=== PATIENT | female | born 1970 | race African-American/Black ===

== ENCOUNTER 2019-07-03 18:15 | Emergency (ER) | payer OTHER, SELFPAY ==
[2019-07-03 18:26] VITALS: BP 170/100; PULSE 88; RESP 16; TEMP 36.9; O2SAT 100
--- NOTE | 2019-07-03 18:36 | ED.URI ---
HPI - URI/Sore Throat General Chief Complaint: Upper Respiratory Infection Stated Complaint: cough/congestion/headache/sore throat Time Seen by Provider: 07/03/19 18:32 Source: patient and RN notes reviewed Mode of arrival: ambulatory Limitations: no limitations History of Present Illness HPI Narrative: Patient presents today complaining of 3-day history of nasal congestion, productive cough, body aches, sore throat. Reports headache that began today. Denies shortness of breath or ear pain. No history of asthma or COPD. She has tried DayQuil, NyQuil, and Mucinex with some relief. She did receive a flu vaccine. She is a non-smoker. MD elicited complaint: cough and sore throat Related Data Home Medications Medication Instructions Recorded Confirmed Lacto.acidophilus-Bif.animalis 2 cap PO DAILY 02/14/19 02/14/19 [Daily Probiotic] enalapril-hydrochlorothiazide 1 tablet PO DAILY 02/14/19 02/14/19 [Vaseretic] ferrous sulfate 325 mg PO DAILY 02/14/19 02/14/19 multivit with min-folic acid See Rx Instructions .ROUTE .COMPLEX 02/14/19 02/14/19 [Adult Multivitamin Gummies] omeprazole 20 mg PO DAILY 02/14/19 02/14/19 Allergies Allergy/AdvReac Type Severity Reaction Status Date / Time No Known Allergies Verified 02/20/19 11:19 Review of Systems Review of Systems: Narrative: CONSTITUTIONAL: Denies fever, chills, or sweats.+ Body aches EYES: Denies visual changes, redness, or discharge. ENT: Denies rhinorrhea, otalgia.+ Congestion, sore throat CARDIOVASCULAR: Denies chest pain, palpitations, or edema. RESPIRATORY: Denies dyspnea.+ Cough GASTROINTESTINAL: Denies abdominal pain, nausea, vomiting, or diarrhea. GENITOURINARY: Denies dysuria or hematuria. SKIN: Denies rash, itching, or wounds. MUSCULOSKELETAL: Denies back pain, joint pain, or myalgia. NEUROLOGIC: Denies numbness, tingling, or weakness.+ Headache PSYCH: Denies depression or anxiety. FORMERLY [facility] Past Medical History Medical History (Updated 07/03/19 @ 18:51 by Brittany Rizvi, BOILER TENDER, ) GERD (gastroesophageal reflux disease) HTN (hypertension) (normal spontaneous vaginal delivery) Surgical History Surgical History (Updated 02/20/19 @ 07:38 by Candace Forbes MD) H/O tubal ligation History of x 2 Status post breast reduction Comments At time of signature, I have reviewed and agree with nursing past medical, surgical, social and family history unless otherwise noted. Please see nursing chart for further information. There is no relevant family history pertinent to the presenting complaint Exam Narrative: Exam Narrative: GENERAL: Well-appearing, well-nourished, and in no acute distress. HEAD: Normocephalic, atraumatic. EYES: EOMI. No redness or drainage. Conjunctivae normal. ENT: Mucous membranes pink and moist. Nares clear. No rhinorrhea. TMs normal bilaterally. Throat mildly erythematous without edema or exudate. Uvula midline. NECK: Normal AROM. Supple. No lymphadenopathy. CHEST: No respiratory distress. Clear to auscultation. HEART: Regular rate and rhythm. No murmur appreciated. Normal peripheral pulses. EXTREMITIES: Normal range of motion. No edema. SKIN: Warm, dry, no rash. NEURO: No focal deficits. Alert and oriented x3. Gait steady. PSYCH: Normal affect. No signs of depression or anxiety. Course Vital Signs Vital signs: Vital Signs Temperature 98.4 F 07/03/19 18:26 Pulse Rate 88 07/03/19 18:26 Respiratory Rate 16 07/03/19 18:26 Blood Pressure 170/100 H 07/03/19 18:26 Pulse Oximetry 100 07/03/19 18:26 Temperature 98.4 F 07/03/19 18:26 Pulse Rate 88 07/03/19 18:26 Respiratory Rate 16 07/03/19 18:26 Blood Pressure 170/100 H 07/03/19 18:26 Pulse Oximetry 100 07/03/19 18:26 Reviewed. Pt has been instructed to follow up with her PCP regarding her elevated blood pressure today. MDM - URI/Sore Throat Differential Diagnosis Differential diagnosis: Likely upper resp
[2019-07-03 18:52] VITALS: BP 170/110
== END 2019-07-03 19:02 | disposition home or self-care (01) ==
PROVIDERS: Emergency Provider Nurse Practitioner; PCP Physician Assistant
DX: J06.9 Acute upper respiratory infection, unspecified (principal); K21.9 Gastro-esophageal reflux disease without esophagitis; I10 Essential (primary) hypertension
CPT/HCPCS: 87081; 87880; 99213; G0463

== ENCOUNTER 2023-06-25 16:52 | Emergency (ER) | payer OTHER, SELFPAY ==
--- NOTE | 2023-06-25 16:55 | ED.URI ---
HPI - URI/Sore Throat General Chief Complaint: Upper Respiratory Infection Stated Complaint: cough,chest congestion Time Seen by Provider: 06/25/23 16:55 Source: patient Mode of arrival: ambulatory Limitations: no limitations History of Present Illness HPI Narrative: Amparo is a 52 old female patient presenting to the clinic today with complaints of cough and congestion for the past 3 days. She reports no known fever or chills. Cough is nonproductive. She reports she is having a slight sore throat as well. COVID test at home was negative MD elicited complaint: cough, sore throat and nasal congestion Related Data Home Medications Medication Instructions Recorded Confirmed Lactobacillus 2 cap PO DAILY 02/14/19 06/25/23 acidophilus-Bifidobac.animalis 2.5 billion cell capsule (Daily Probiotic) enalapril 10 1 tablet PO DAILY 02/14/19 06/25/23 mg-hydrochlorothiazide 25 mg tablet (Vaseretic) ferrous sulfate 325 mg (65 mg 325 mg PO DAILY 02/14/19 06/25/23 iron) tablet multivitamin with minerals-folic See Rx Instructions .Route .COMPLEX 02/14/19 06/25/23 acid 200 mcg chewable tablet (Adult Multivitamin Gummies) omeprazole 20 mg capsule,delayed 20 mg PO DAILY 02/14/19 06/25/23 release escitalopram oxalate 10 mg tablet 10 mg PO DAILY 06/25/23 06/25/23 norethindrone 1 mg-ethinyl 1 tablet PO DAILY 06/25/23 06/25/23 estradiol 20 mcg (21)-iron 75 mg (7) tablet (Aurovela Fe 1-20 (28)) Allergies Allergy/AdvReac Type Severity Reaction Status Date / Time No Known Allergies Verified 02/20/19 11:19 Review of Systems Review of Systems: Pertinent positives per HPI. Patient denies any fever, chills, rash, headache, visual changes, dizziness, cough, shortness of breath, chest pain, palpitations, nausea, vomiting, diarrhea, constipation, abdominal pain, or any urinary issues. FORMERLY [facility] Past Medical History Medical History GERD (gastroesophageal reflux disease) HTN (hypertension) (normal spontaneous vaginal delivery) Surgical History Surgical History (Reviewed 06/25/23 @ 17:11 by ANGELINE Gardner H/O tubal ligation History of x 2 Status post breast reduction Comments At the time of my signature, I reviewed and agree with the nursing past medical, surgical, social, and family history. There is no relevant family history pertinent to the patient complaint. Exam Narrative: General: Well-developed, well nourished, in no apparent distress Head: Normocephalic, atraumatic Eyes: Pupils equally round and reactive to light bilaterally, EOM intact, sclera and conjunctive clear, no discharge, lids normal Ears: TMs intact and clear, ear canals clear, no drainage, grossly hearing normal. Nose: Nares patent, clear nasal discharge, no inflammation, no sinus tenderness. Mouth: Oral pharynx without lesions or masses, good dentition, MMM. Neck: Supple, trachea midline, no enlargement of anterior or posterior cervical nodes, no thyroid masses or goiter palpable. Cardio: Regular rate and rhythm, s1 and s2 normal, no murmur appreciated. Resp: Clear to auscultation bilaterally, no rhonchi, rales, wheezing or rubs Course Course Emergency Course: Portions of this record may have been created with voice recognition software. Level of Care: Express Care Visit Vital Signs Vital signs: Vital signs reviewed MDM - URI/Sore Throat MDM Narrative Medical decision making narrative: At the time of visit patient is resting comfortably on the exam table. Patient appears to be nontoxic. Labs: Influenza and strep test was performed and were negative in the clinic today. We will send strep for culture. Plan: I suspect patient has URI/pharyngitis. Supportive measures were discussed with the patient and they voiced understanding discharge instructions and agrees to treatment plan. Return precautions reviewed Differenti
[2023-06-25 17:06] VITALS: BP 182/106; PULSE 91; RESP 16; TEMP 37; O2SAT 99
== END 2023-06-25 17:33 | disposition home or self-care (01) ==
PROVIDERS: Emergency Provider Nurse Practitioner Family; PCP Physician Assistant
DX: J06.9 Acute upper respiratory infection, unspecified (principal); I10 Essential (primary) hypertension; Z79.899 Other long term (current) drug therapy
CPT/HCPCS: 87081; 87804; 87880; 99213; G0463

== ENCOUNTER 2023-10-07 11:44 | Outpatient (CLI) | payer OTHER, SELFPAY ==
[2023-10-07 12:42] LABS: Anion Gap 7 mmol/L (4-12); Blood Urea Nitrogen 13 mg/dL (7-17); Calcium 10.3 mg/dL (8.4-10.2); Carbon Dioxide 26 mmol/L (22-30); Chloride 107 mmol/L (98-107); Estimated Glomerular Filt Rate > 60; Glucose 85 mg/dL (65-110); Sodium 140 mmol/L (137-145)
== END 2023-10-07 11:45 | disposition home or self-care (01) ==
LOC: ANHSURGERY 11:49
PROVIDERS: Anesthesiology; PCP Physician Assistant; Visit Provider Obstetrics & Gynecology Gynecology
DX: Z01.818 Encounter for other preprocedural examination (principal); Z79.899 Other long term (current) drug therapy
CPT/HCPCS: 36415; 80048

== ENCOUNTER 2023-10-11 00:23 | Day surgery (SDC) | payer OTHER, SELFPAY ==
[2023-10-06 10:08] VITALS: BMI 31.3
--- NOTE | 2023-10-06 10:15 | PC.NURSE ---
Report to the Outpatient Waiting Room, entrance under the green pavilion located off [facility], at time _1045_ on date _[id number]_. Planned Procedure Time: _1245_. Time changes happen often and if your time is changed the preop area will call you the afternoon before. - You and your visitor will be asked to self-screen and do not enter if you have any COVID symptoms. - A mask is optional within the hospital at this time. Patients may have clear liquids (water, carbonated beverages, clear teas, apple juice) until 3 hours prior to surgery with a maximum of 20 ounces. - No food from midnight until time of surgery Take the following medications with a SIP of water the morning of surgery: ___Escitalopram DO NOT STOP ANY OF YOUR OTHER PRESCRIPTION MEDICATIONS PRIOR TO SURGERY ?EXCEPT THE FOLLOWING Medications to discontinue per physician None Date to take last dose Please no make-up, nail romanian, hairspray, perfume, deodorant, or body powder the day of surgery. No jewelry (including any body piercings) or valuables the day of surgery, leave them at home. Please take a shower or bath the night before, or the morning of, surgery with an antibacterial soap. Wear comfortable, loose fitting clothing. - Jewelry must be removed prior to entering the operating room. Rings and piercings that are not removed may be cut off. - The hospital will not accept responsibility for valuables. - Please leave all valuables, including medications, at home the day of surgery. If you are going home after surgery, a licensed jinrikisha driver must drive you home. - NO public transportation without another adult if you receive anesthesia. - We recommend that an adult stay with you for 24 hours following discharge. - We also recommend that you do not drive, make important decision, drink alcoholic beverages, or take any drugs that were not prescribed by your health care provider for at least 24 hours after your discharge time. Follow any additional instructions given to you from your surgeon. If you or anyone in your household have experienced Covid symptoms in the past week, please notify your surgeon or the nurse liaison at the phone number below for possible testing. Telephone instructions given to __Zafari__and asked if any additional questions and then verbalized understanding. Patient advised to call surgeon office or pre surgery nurse liaison [phone] if any additional questions.
--- NOTE | 2023-10-11 08:06 | WPDHPUPDATE1 ---
History and Physical Update Update Date/Time: 10/11/23 08:06 History and Physical has been reviewed, including an updated exam of the patient. There are NO changes in the patient's condition. Risks, benefits, and alternatives have been discussed and questions answered. Patient agrees to proceed with procedure.
--- NOTE | 2023-10-11 08:06 | PM.HPGS ---
History of Present Illness History of Present Illness Consent: Risks, benefits, and alternatives have been discussed and questions answered. Patient agrees to proceed with procedure. Chief complaint: Menorrhagia Narrative: Isabela Mcgarry is a 52 year old female with heavy vaginal bleeding since off her control pills. Patient went to the emergency room and was noted to have mild anemia. She discontinued her control pills due to an elevated blood pressure at her primary visit. It was recommended to undergo D&C hysteroscopy for further evaluation. Risks of infection, bleeding, perforation, and possible pathology are discussed. Patient voices understanding and agrees to proceed. Review of Systems Review of Systems: not repeated day of surgery; patient states no changes in status PMFSH Past Medical History Medical History GERD (gastroesophageal reflux disease) HTN (hypertension) (normal spontaneous vaginal delivery) Surgical History Surgical History H/O tubal ligation History of x 2 Status post breast reduction Social History Social History Smoking status: Never smoker Alcohol intake: current Drinks per week: 2 Living arrangements: with family Spiritual care concerns: No Meds Home Medications and Allergies Home Medications Medication Instructions Recorded Confirmed Type enalapril 10 1 tablet PO DAILY 02/14/19 10/06/23 History mg-hydrochlorothiazide 25 mg tablet (Vaseretic) escitalopram oxalate 10 mg tablet 10 mg PO DAILY 06/25/23 10/06/23 History norethindrone 1 mg-ethinyl 1 tablet PO DAILY 06/25/23 10/06/23 History estradiol 20 mcg (21)-iron 75 mg (7) tablet (Aurovela Fe 1-20 (28)) amoxicillin 500 mg capsule 500 mg PO Q12H 10/06/23 10/06/23 History benzonatate 100 mg capsule 100 mg PO TID PRN Cough 10/06/23 10/06/23 History diphenhydramine HCl 25 mg tablet 25 mg PO HS 10/06/23 10/06/23 History (Benadryl Allergy) fexofenadine 60 mg tablet 60 mg PO DAILY 10/06/23 10/06/23 History Allergies Allergy/AdvReac Type Severity Reaction Status Date / Time No Known Allergies Allergy Verified 10/06/23 10:04 Exam Const: General: healthy appearing and alert Orientation/consciousness: patient oriented x3 Resp: Effort & Inspection: normal respiratory effort GI: GI Palp: Yes Soft to palpation, No Tenderness to palpation present (GI) and No Palpable mass present : External Female Exam: normal external appearance Speculum Exam - Vagina: normal appearance of the vagina and normal vaginal discharge Speculum Exam - Cervix: normal appearance of the cervix Bimanual exam- vagina & uterus: uterine size normal and consistency normal Bimanual Exam- Adnexa, other: normal adnexae and No adnexal tenderness Neuro: General: patient oriented x3 Assessment and Plan Assessment and plan (1) Menorrhagia: Code(s): N92.0 - Excessive and frequent menstruation with regular cycle Status: Acute Assessment and Plan: Plan to proceed with D&C hysteroscopy
[2023-10-11 12:10] VITALS: BP 172/97; PULSE 70; RESP 14; TEMP 36.1; O2SAT 100
[2023-10-11] MEDS: LACTATED RINGERS 1,000 ML 30 ML IV CONT (12:10)
[2023-10-11] MEDS: ACETAMINOPHEN 500 MG TABLET 1000 MG PO (12:10)
--- NOTE | 2023-10-11 12:16 | P.PNAN_ITS ---
Anes - Initial Pre Proc Eval Procedure: Operation Date: 10/11/23 12:45 Proposed Procedures p Hysteroscopy Dilation and Curettage - Candace Forbes MD Date/Time: 10/11/23 12:16 Surgeon: Candace Forbes MD Pre Op Diagnosis: Menorrhagia Patient Data Age: 52 Gender: F Height: 1.61 m Weight: 81.4 kg Allergies Allergy/AdvReac Type Severity Reaction Status Date / Time No Known Allergies Allergy Verified 10/06/23 10:04 Home Medications Medication Instructions Recorded Confirmed Type enalapril 10 1 tablet PO DAILY 02/14/19 10/06/23 History mg-hydrochlorothiazide 25 mg tablet (Vaseretic) escitalopram oxalate 10 mg tablet 10 mg PO DAILY 06/25/23 10/06/23 History norethindrone 1 mg-ethinyl 1 tablet PO DAILY 06/25/23 10/06/23 History estradiol 20 mcg (21)-iron 75 mg (7) tablet (Aurovela Fe 1-20 (28)) amoxicillin 500 mg capsule 500 mg PO Q12H 10/06/23 10/06/23 History benzonatate 100 mg capsule 100 mg PO TID PRN Cough 10/06/23 10/06/23 History diphenhydramine HCl 25 mg tablet 25 mg PO HS 10/06/23 10/06/23 History (Benadryl Allergy) fexofenadine 60 mg tablet 60 mg PO DAILY 10/06/23 10/06/23 History Patient hx anesthesia problems: none Family hx anesthesia problems: none Results Review: All pre-operative results and documents have been reviewed as part of the pre- operative evaluation. FORMERLY [facility] Past Medical History Medical History GERD (gastroesophageal reflux disease) HTN (hypertension) (normal spontaneous vaginal delivery) Surgical History Surgical History H/O tubal ligation History of x 2 Status post breast reduction Social History Social History Smoking status: Never smoker Alcohol intake: current Drinks per week: 2 Living arrangements: with family Spiritual care concerns: No Anes - Eval Final PreProcedure Day of Procedure 10/11/23 12:16 Patient weight: obese Heart: regular rate and rhythm Lungs: clear to auscultation Airway: Mallampati scale class II Neurological: alert and oriented Last oral intake: >/= 8 hours ASA classification: II Emergent: no Anesthetic plan: proceed Anesthesia type and monitoring: general GIVS and standard monitoring Results Review: All pre-operative results and documents have been reviewed as part of the pre- operative evaluation. Informed Consent: The patient's anesthetic plan and its attendant risks and benefits were discussed with the patient/family/POA. Questions were solicited and answers provided to the satisfaction of the patient/family/POA.
[2023-10-11] MEDS: KETOROLAC 30 MG/ML VIAL (*BKC) IV PUSH (13:11)
--- NOTE | 2023-10-11 13:14 | P.OP_ITS ---
Procedure Note - Detailed Date of Procedure 10/11/23 Pre-op Diagnosis Menorrhagia Post-op Diagnosis Same Procedure Performed D&C hysteroscopy with partial myomectomy Surgeon Candace Forbes MD Anesthesia MAC Findings uterus is very anteverted; uterus sounds to 9cm; there is a large posterior fibroid filling over half the cavity; the remainder of the endometrium appears grossly normal Description of Procedure The patient is taken to the operating room and placed under anesthesia in the dorsal lithotomy position. She was prepped and draped in the usual sterile fashion. [place] speculum was placed in the vagina and cervix grasped on the anterior lip. The uterus is sounded to 9cm. Uterus is noted to be quite anteverted. The hysteroscope is placed and the above-stated findings were noted. The Flex Aveta resection blade is placed and under direct visualization approximately half the fibroid is removed. As the fibroid was removed it appeared to be having new portions of the fibroid pushing into cavity. Visualization became poor due to bleeding the resection and the procedure was halted. The hysteroscope was removed. The myoma grasper was used X2 and attempted to grasp the jagged edge of the fibroid and this was not successful. The sharp OO curette was used to curette the endometrium until a good uterine cry was noted in all areas. The instruments were then removed. Fluid deficit is 460cc. Sponge, needle, and instrument counts are correct per the OR staff. Patient was awakened from anesthesia and taken to recovery in stable condition. Estimated Blood Loss 100 ( Difficult to evaluate as the discard bag was fairly bloody) Drains No Packing No Pathology Yes ( endometrial shavings and curettings) Complications No immediate complications Condition Stable Disposition PACU
[2023-10-11 13:17] VITALS: BP 175/100; PULSE 72; RESP 16; O2SAT 94
[2023-10-11 13:45] VITALS: BP 175/106; PULSE 58; RESP 14; O2SAT 100
[2023-10-11] MEDS: hydrALAZINE HCL 20 MG/ML VIAL 10 MG IV PUSH (13:50)
[2023-10-11] MEDS: ONDANSETRON INJ 4 MG/2 ML VIAL IV PUSH (14:11)
[2023-10-11 14:15] VITALS: BP 150/86; PULSE 79; RESP 16
[2023-10-11] MEDS: oxyCODONE HCL (*CRX) 5 MG TAB IR PO (14:36)
[2023-10-11 14:45] VITALS: BP 135/81; PULSE 77; RESP 16
[2023-10-11 14:56] VITALS: BP 145/90; PULSE 75; RESP 16
== END 2023-10-11 15:06 | disposition home or self-care (01) ==
PROVIDERS: PCP Physician Assistant; Visit Provider Obstetrics & Gynecology Gynecology
PROC: 0U5B8ZZ Destruction of Endometrium, Via Natural or Artificial Opening Endoscopic (ICD-10-PCS; CPT 58563; principal; 2023-10-11 12:45)
DX: N92.0 Excessive and frequent menstruation with regular cycle (principal); D25.9 Leiomyoma of uterus, unspecified; D64.9 Anemia, unspecified; I10 Essential (primary) hypertension; K21.9 Gastro-esophageal reflux disease without esophagitis; E66.9 Obesity, unspecified; Z68.31 Body mass index [BMI] 31.0-31.9, adult
CPT/HCPCS: 58561; 88305; A9270; J0360; J1885; J2405; J2704; J3010; J7120

== ENCOUNTER 2024-02-10 11:27 | Outpatient (CLI) | payer OTHER, SELFPAY ==
[2024-02-10 12:15] LABS: Hematocrit 39.2 % (37.0-47.0); Hemoglobin 12.4 g/dL (12.0-15.0); Mean Corpuscular HGB Conc 31.6 g/dl (32-36); Mean Corpuscular Hemoglobin 28.7 pg (26-34); Mean Corpuscular Volume 90.7 fl (80-100); Mean Platelet Volume 10.1 fl (7.4-10.4); Platelet Count Result 374 k/mm3 (150-375); Red Blood Count 4.32 M/mm3 (4.2-5.4); Red Cell Distribution Width 13.5 % (11.5-14.5)
== END 2024-02-10 11:28 | disposition home or self-care (01) ==
LOC: ANHLAB 11:28
PROVIDERS: PCP Physician Assistant; Visit Provider Obstetrics & Gynecology
DX: N92.0 Excessive and frequent menstruation with regular cycle (principal)
CPT/HCPCS: 36415; 85027

== ENCOUNTER 2024-05-02 14:16 | Outpatient (CLI) | payer OTHER, SELFPAY ==
[2024-05-02 14:34] LABS: Hematocrit 26.4 % (37.0-47.0); Hemoglobin 7.7 g/dL (12.0-15.0); Mean Corpuscular HGB Conc 29.2 g/dl (32-36); Mean Corpuscular Hemoglobin 24.6 pg (26-34); Mean Corpuscular Volume 84.3 fl (80-100); Mean Platelet Volume 8.8 fl (7.4-10.4); Platelet Count Result 438 k/mm3 (150-375); Red Blood Count 3.13 M/mm3 (4.2-5.4); Red Cell Distribution Width 15.4 % (11.5-14.5); White Blood Count 10.6 K/mm3 (4.5-10.0)
== END 2024-05-02 14:17 | disposition home or self-care (01) ==
PROVIDERS: PCP Physician Assistant; Visit Provider Obstetrics & Gynecology
DX: D64.9 Anemia, unspecified (principal)
CPT/HCPCS: 36415; 85027

== ENCOUNTER 2024-05-08 17:15 | Outpatient (RCR) | payer OTHER, SELFPAY ==
[2024-05-04] VITALS (9 sets, daily range): BP systolic 133–156; BP diastolic 84–95; PULSE 70–90; RESP 14–18; TEMP 36.3–36.7; O2SAT 100
[2024-05-04 08:57] LABS: Hematocrit 23.9 % (37.0-47.0); Mean Corpuscular HGB Conc 29.3 g/dl (32-36); Mean Corpuscular Hemoglobin 25.5 pg (26-34); Mean Corpuscular Volume 86.9 fl (80-100); Mean Platelet Volume 9.8 fl (7.4-10.4); Platelet Count Result 420 k/mm3 (150-375); Red Blood Count 2.75 M/mm3 (4.2-5.4); Red Cell Distribution Width 17.1 % (11.5-14.5); White Blood Count 9.5 K/mm3 (4.5-10.0)
[2024-05-08 17:52] LABS: Hematocrit 34.3 % (37.0-47.0); Hemoglobin 10.4 g/dL (12.0-15.0)
[2024-05-08 17:59] LABS: Anion Gap 10 mmol/L (4-12); Blood Urea Nitrogen 16 mg/dL (7-17); Calcium 9.8 mg/dL (8.4-10.2); Carbon Dioxide 28 mmol/L (22-30); Chloride 101 mmol/L (98-107); Estimated Glomerular Filt Rate > 60; Glucose 91 mg/dL (65-110); Potassium 3.4 mmol/L (3.4-5.0); Sodium 139 mmol/L (137-145)
== END 2024-08-02 23:59 | disposition home or self-care (01) ==
LOC: ANHCPCTRAN 17:15
PROVIDERS: PCP Physician Assistant; Visit Provider Obstetrics & Gynecology
DX: D64.9 Anemia, unspecified (principal)
CPT/HCPCS: 36415; 36430; 80048; 85014; 85018; 85027; 86850; 86900; 86901; 86920; P9016

== ENCOUNTER 2024-05-18 01:08 | Day surgery (SDC) | payer OTHER, SELFPAY ==
--- NOTE | 2024-05-05 15:11 | SUR.PREOP ---
Report to the Outpatient Waiting Room, entrance under the green pavilion located off [facility], at time 0830 on date 05/17/24. Planned Procedure Time: 1030.? Time changes happen often and if your time is changed the preop area will call you the afternoon before. - You and your visitor will be asked to self-screen and do not enter if you have any COVID symptoms. Please call surgeon if you need to reschedule. - A mask is optional within the hospital at this time. Patients may have clear liquids (water, carbonated beverages, clear teas, apple juice) until 3 hours prior to surgery with a maximum of 20 ounces. - NO CLEAR LIQUIDS AFTER 0730 - No food from midnight until time of surgery and no smoking. This includes no chewing gum, candy or mints. - Infants may have breast milk until 4 hours before surgery, formula 6 hours prior to surgery. - Children will be allowed to drink immediately following surgery.? If applicable, please bring a bottle or sippy cup to assist with drinking. Juice, water, soda, and popsicles are readily available.? For infants on formula, please bring formula the day of surgery.? Pacifiers are allowed. Take only the following medications with a SIP of water on the morning of surgery: ESCITALOPRAM & MYFEMBREE DO NOT STOP ANY OF YOUR OTHER PRESCRIPTION MEDICATIONS PRIOR TO SURGERY EXCEPT THE FOLLOWING Medications to discontinue per physician HOLD MULTIVITAMIN BEGINNING 05/14/24 Date to take last dose Please no make-up, nail spanish, hairspray, perfume, deodorant, or body powder the day of surgery.? No jewelry (including any body piercings) or valuables the day of surgery, leave them at home.? Please take a shower or bath the night before, or the morning of, surgery with an antibacterial soap.? Wear comfortable, loose fitting clothing.? Children are encouraged to wear pajamas. - Jewelry must be removed prior to entering the operating room.? Rings and piercings that are not removed may be cut off. - The hospital will not accept responsibility for valuables.? - Please leave all valuables, including medications, at home the day of surgery. If you are going home after surgery, a licensed taxi driver supervisor must drive you home.? - NO public transportation without another adult if you receive anesthesia. - We recommend that an adult stay with you for 24 hours following discharge. - We also recommend that you do not drive, make important decision, drink alcoholic beverages, or take any drugs that were not prescribed by your health care provider for at least 24 hours after your discharge time. For Pediatric surgeries, we recommend two adults accompany the child home. Follow any additional instructions given to you from your surgeon. Telephone instructions given to GENO GOMEZ and asked if any additional questions and then verbalized understanding. Patient advised to call surgeon office or pre surgery nurse liaison [phone] if any additional questions.
[2024-05-05 15:25] VITALS: BMI 31.8
--- NOTE | 2024-05-12 14:32 | PC.NURSE ---
Patient says no changes in health hx since previous interview. Informed patient her surgery would be on May 18, 2024 to arrive at 6am for surgery at 0730. Reviewed rest of instruction given to patient by Constance Cisneros RN.
--- NOTE | 2024-05-17 16:31 | P.HP_ITS ---
H&P: HPI History of Present Illness Date/Time: 05/17/24 16:31 Chief Complaint: Menorrhagia Narrative: Patient with known fibroid uterus with persistent menometorrhagia. She had a D and C and hysteroscopic partial myomectomy. She continued to have intermittently heavy periods since then. Pathology showed benign inactive endometrium and benign fibroid. She wanted a second opinion regarding treatment and I had seen her in January. She was on Slynd then. She did opt for hysterectomy. She was switched to Myfembree. She opted for hysterectomy which was scheduled for May. She did go to ED in [place] for that episode of heavy bleeding. She was subsequently found to have h/h of 11/08 and was given 2units PRBC on May 05. Her surgery date was moved up. Her bleeding has improved and f/u h/h on 05/08 was [id number]. Review of Systems Review of Systems: All systems reviewed & are unremarkable except as noted in HPI and below Cardiovascular: Cardiovascular: Reports no additional cardiovascular complaints, Denies chest pain and Denies dyspnea Respiratory: Respiratory: Reports no additional respiratory complaints and Denies dyspnea Gastrointestinal: Gastrointestinal: Reports abdominal pain, Denies change in bowel habits, Denies diarrhea, Denies nausea and Denies vomiting Genitourinary: Genitourinary: Reports pelvic pain Musculoskeletal: Musculoskeletal: Reports back pain Integumentary/Breasts: Skin/Breast: Reports system reviewed and no additional complaints, except as docu Neurologic: Reports system reviewed and no additional complaints, except as documented PMFSH Past Medical History Medical History Anxiety (normal spontaneous vaginal delivery) GERD (gastroesophageal reflux disease) HTN (hypertension) Surgical History Surgical History Hx of dilation and curettage Status post breast reduction H/O tubal ligation History of x 2 Family History Family History Mother Asthma Diabetes mellitus Hypertension Cerebrovascular accident Father Alcoholism Sibling Malignant neoplasm of prostate Crohn's disease Grandparent Diabetes mellitus Cerebrovascular accident Social History Social History Smoking status: Never smoker Alcohol intake: current Drinks per week: 2 Substance use: never Living arrangements: with family Spiritual care concerns: No Meds Home Medications and Allergies Home Medications ?Medication ?Instructions ?Recorded ?Confirmed ?Type enalapril 10 1 tablet PO DAILY 02/14/19 05/05/24 History mg-hydrochlorothiazide 25 mg tablet (Vaseretic) escitalopram oxalate 10 mg tablet 10 mg PO DAILY 06/25/23 05/05/24 History multivitamin (Daily Multi-Vitamin 1 tablet PO DAILY 04/06/24 05/05/24 History tablet) relugolix 40 mg-estradiol 1 1 tablet PO DAILY #90 tabs 04/06/24 05/05/24 Rx mg-norethindrone acetate 0.5 mg tablet (Myfembree) ferrous sulfate 325 mg (65 mg 325 mg PO DAILY 05/02/24 05/05/24 History iron) tablet,delayed release mecobalamin (vitamin B12) 1,000 1,000 mcg PO DAILY 05/02/24 05/05/24 History mcg chewable tablet (B12 Active) Allergies Allergy/AdvReac Type Severity Reaction Status Date / Time No Known Allergies Allergy Verified 05/12/24 14:29 Exam Const: Orientation/consciousness: oriented to person and oriented to place HENMT: Head: normal to inspection Eyes: General: appearance normal, both eyes and all related structures Resp: Effort & Inspection: normal respiratory effort Auscultation: clear to auscultation bilaterally Cardio: Rate: regular rate Rhythm: regular rhythm GI: Inspection: normal to inspection GI Palp: No Rebound tenderness present Neuro: General: oriented to person and oriented to place Cognition (Neuro): normal cognition Extrem: General: normal to inspection Psych: Appearance: grossly normal and well kempt Assessment and Plan Assessment and plan (1) Menorrhagia: Code(s): N92.0 - Excessive and frequent menstruation with regular cycle Status: Acute Assessment and Plan: Will proceed with robotic assisted laparoscopic total vaginal hysterectomy and bilateral salpingo-oophorectomy. (2) Fibroid uterus: Code(s): D25.9 - Leiomyoma of uterus, unspecified Status: Acute
[2024-05-18] VITALS (11 sets, daily range): BP systolic 114–166; BP diastolic 80–101; PULSE 58–96; RESP 9–18; TEMP 36.1–36.8; O2SAT 92–100
--- OUTSIDE RECORDS SUMMARY | 2024-05-18 01:11 | XMS_ITS | Clinical Summary ---
Author Organization [facility] Address [address] [place] [address]. [place] [address] [place] [address] Care Team Providers Care Network Developer Name Role Phone Travis Allen Primary Care Provider [phone] Allergies No known active allergies Medications omeprazole 20 MG capsule Take 20 mg by mouth daily. Active enalapril-hydro CHLOROthiazide 10-25 MG tablet 12/05/2012 Act nimesh Multiple Vitamins-Minera ls (MULTIVITAMIN ADULTS OR) Take by mouth daily. Active NON FORMULARY control Active BLISOVI 24 FE 1-20 MG-MCG(24) tablet 06/24/2021 Active ferrous sulfate, 65 mg elemental, 325 (65 FE) MG tablet Take 1 tablet (325 mg total) by mouth daily with breakfast. 30 tablet 08/23/2023 Active potassium chloride CR (K-TAB) 20 MEQ tablet Take 1 tablet (20 mEq total) by mouth daily for 3 days. 3 tablet 04/27/2024 04/30/19 25 Encounters Date Type Department Care Team Description 04/26/2024 7:32 PM DENTAL FLOSS PACKER - 04/27/2024 2:04 AM [facility] Emergency [facility] [place] [address] Krysten Fowler PA Vaginal Bleeding Discharge Disposition: Home or Self Care (Routine Discharge) 04/26/2024 Travel 03/02/2024 2:20 PM DENTAL FLOSS PACKER - 03/02/2024 11:59 PM DENTAL FLOSS PACKER Hospital Encounter [facility] [place] [address] [address] Jose R Teresa MD Discharge Disposition: Home or Self Care (Routine Discharge) 03/02/2024 Travel from Last 3 Months Family History Medical History Relation Comments No Known Problems Father Diabetes Mother Hypertension Mother Stroke Mother Relation Status Comments Father Mother Alive Social History Tobacco Use Types Packs/Day Years Used Date Smoking Tobacco: Never Smokeless Tobacco: Never Alcohol Use Standard Drinks/Week Comments Yes 0 (1 standard drink = 0.6 oz pur e alcohol) social Comments No Sex and Gender Information Value Date Recorded Sex Assigned at Not on file Legal Sex Female 5:01 PM CDT Gender Identity Not on file Sexual Orientation Not on file Last Filed Vital Signs Vital Sign Reading Time Taken Comments Blood Pressure 115/88 04/27/2024 12:58 AM DENTAL FLOSS PACKER Pulse 103 04/27/2024 12:58 AM DENTAL FLOSS PACKER Temperature 36.2 ??C (97.2 ??F) 04/27/2024 12:[address] Respiratory Rate 20 04/27/2024 12:58 AM DENTAL FLOSS PACKER Oxygen Saturation 100% 04/27/2024 12:58 AM DENTAL FLOSS PACKER Inhaled Oxygen Concentration - - Weight 81.6 kg (180 lb) 04/26/2024 7:14 PM DENTAL FLOSS PACKER Height 160 cm (5' 3 ) 04/26/2024 7:14 PM DENTAL FLOSS PACKER Body Mass Index 31.89 04/26/2024 7:14 PM DENTAL FLOSS PACKER Plan of Treatment Health Maintenance Due Date Last Done Comments Cervical Cancer Screening Pa p Smear (Age 30 to 64) Every 3 Years 1971 Annual Physical 12/10/1974 Hepatitis C 12/10/1989 DTaP, Tdap and Td Vaccines ( 1 - Tdap) 12/10/1990 Hepatitis B Vaccines (1 of 3 - 19+ 3-dose series) 12/10/1990 Cervical Cancer Screening Pa p with HPV Testing (Age 30 to 64) Every 5 Years 12/10/2001 Cervical Cancer Screening wi th HPV 12/10/2001 Zoster Vaccines (1 of 2) 12/10/2021 Mammogram Screening 05/29/2022 05/29/2020, 05/10/2018, 04/06/2017 COVID-19 Vaccine (3 - 2023-2 5 season) 2023 07/07/2020, 06/15/2020 Influenza Adult (#1) 2024 Colorectal Cancer Screening Colonoscopy (10 Years) 11/25/2030 11/25/2020, 11/25/2020 Meningococcal B Vaccine Aged Out No l onger eligible based on patient's age to complete this topic Meningococcal Vaccine Aged Out No sarina michelle eligible based on patient's age to complete this topic Pneumococcal Vaccine: Pediatrics (0 to 5 Years) and At-Risk Patients (6 to 64 Years) Aged Out No longer eligible b ased on patient's age to complete this topic RSV Immunizations Under 20 Months Aged Out No longer eligible b ased on patient's age to complete this topic Procedures Procedure Name Priority Date/Time Associated Diagnosis Comments HEMOGLOBIN AND HEMATOCRIT STAT 04/26/2024 10:53 PM DENTAL FLOSS PACKER ECG 12-LEAD STAT 04/26/2024 10:18 PM DENTAL FLOSS PACKER TYPE & SCREEN STAT 04/26/2024 7:41 PM DENTAL FLOSS PACKER CHORIONIC GONADOTROPIN HCG QL STAT 04/26/2024 7:41 PM DENTAL FLOSS PACKER COMPREHENSIVE METABOLIC PANEL STAT 04/26/2024 7:41 PM DENTAL FLOSS PACKER CBC W/DIFF AUTOMATED STAT 04/26/2024 7:41 PM DENTAL FLOSS PACKER MAGNESIUM Routine 04/26/2024 7:35 PM DENTAL FLOSS PACKER US PELVIC NON OB COMP TA+TV Routine 03/02/2024 3:13 PM DENTAL FLOSS PACKER Benign neoplasm of connective and other soft tissue, unspecified COLONOSCOPY Routine 11/25/2020 11:11 AM CDT MG SCREENING W WIN ROCHELLE DIGI Routine 05/29/2020 8:00 AM DENTAL FLOSS PACKER Encounter for screening mammogram for malignant neoplasm of breast from Last 3 Months or Most Recently Relevant to Health Maintenance Results * (ABNORMAL) HEMOGLOBIN AND HEMATOCRIT (04/26/2024 10:53 PM DENTAL FLOSS PACKER) HGB 8.0(L) 12.0 - 16.0 G/DL 04/26/2024 11:21 PM DENTAL FLOSS PACKER [facility] HCT 25.3(L) 38.0 - 48.0 % 04/26/2024 11:21 PM DENTAL FLOSS PACKER [facility] 04/26/2024 10:5 3 PM DENTAL FLOSS PACKER us Krysten [facility]ORAT[facility] Final Resu lt [facility] [address] [place] [address], * ECG 12 lead (04/26/2024 10:18 PM DENTAL FLOSS PACKER) 04/26/2024 10:1 8 PM DENTAL FLOSS PACKER Narrative [facility] ([facility]) RAD - 04/27/2024 3:41 PM DENTAL FLOSS PACKER ?Paloma`delisa Martin ? [address] [facility] ? Test Date: ?2024-04-26 Pat Name: ? ISABELA MCGARRY ?Department: ?? 41 ? Room: ? EXAM10 Gender: ? Female ? Installation And Repair Technician: ?? CB : ?1970 ? Requested By: KRYSTEN FOWLER Order Number: [id number] ? Reading MD: ?? Leonard Marshall ? Measurements Intervals ?[place] ? Rate: ? 79 ? P: ?24 NE: ? 164 ?QRS: ?20 QRSD: ? 98 ? T: ?53 QT: ? 388 ? QTc: ?447 ? Interpretive Statements SINUS RHYTHM NONSPECIFIC T-WAVE ABNORMALITY Compared to ECG 07/03/2019 23:43:54 T-wave abnormality now present Sinus arrhythmia no longer present First degree AV block no longer present No ischemic changes Preliminary EKG Interpretation by Otis Sarmiento DO AL FLOSS PACKER Procedure Note Leonard Marshall MD - 04/27/[address] Test Date: 2024-04-26 Pat Name: ISABELA MCGARRY Department: 41 Room: [facility] Gender: Female Installation And Repair Technician: DAMON : 1970 Requested By: KRYSTEN FOWLER Order Number: [id number] Reading MD: Leonard Marshall Measurements Intervals [place] Rate: 79 P: 24 NE: 164 QRS: 20 QRSD: 98 T: 53 QT: 388 QTc: 447 Interpretive Statements SINUS RHYTHM NONSPECIFIC T-WAVE ABNORMALITY Compared to ECG 07/03/2019 23:43:54 T-wave abnormality now present Sinus arrhythmia no longer present First degree AV block no longer present No ischemic changes Preliminary EKG Interpretation by Otis Sarmiento DO AL FLOSS PACKER us Krysten MACIAS ECG ORDERABLES Final Resu lt Performing Organization Address City/[facility]/ZIP Co de Phone Number [facility] ([facility]) RAD * TYPE & SCREEN (04/26/2024 7:41 PM DENTAL FLOSS PACKER) ABO/RH O POSITIVE 04/26/2024 9:15 PM DENTAL FLOSS PACKER [facility] ANTIBODY SCREEN NEGATIVE 04/26/2024 9:15 PM DENTAL FLOSS PACKER [facility] SAMPLE EXPIRATION 04/29/2024,2 359 04/26/2024 9:15 PM DENTAL FLOSS PACKER [facility] 04/26/2024 7:41 PM DENTAL FLOSS PACKER us Apryl MACIAS BLOOD BANK TEST ORDERABLES Fin al Result [facility] [address] [place] [address], [place] [phone] * (ABNORMAL) COMPREHENSIVE METABOLIC PANEL (04/26/2024 7:41 PM DENTAL FLOSS PACKER) GLUCOSE 138(H) 70 - 99 MG/DL 04/26/2024 8:50 PM [facility] BUN 13 7 - 18 MG/DL 04/26/2024 8:50 PM [facility] CREATININE S/P/B 0.93 0.55 - 1.02 MG/DL 04/26/2024 8:50 PM [facility] SODIUM S/P/B 136 136 - 145 MMOL/L 04/26/2024 8:50 PM [facility] POTASSIUM S/P/B 2.9(LL) 3.5 - 5.1 MMOL/L 04/26/2024 8:50 PM [facility] Comment: Critical Result(s) Called at: 20:49:31 on 04/26/2024 by: Magda Marion to and read back by:JORDEN DE LA TORRE CHLORIDE S/P/B 103 97 - 115 MMOL/L 04/26/2024 8:50 PM [facility] CO2 28.9 21 - 32 MMOL/L 04/26/2024 8:50 PM [facility] CALCIUM S/P/B 10.0 8.5 - 10.1 MG/DL 04/26/2024 8:50 PM [facility] BILIRUBIN TOTAL S/P/B 0.3 0.2 - 1.2 MG/DL 04/26/2024 8:50 PM [facility] Comment: THIS ASSAY IS NOT RECOMMENDED FOR PATIENTS UNDERGOING TREATMENT WITH ELTROMBOPAG DUE TO THE POTENTIAL FOR FALSELY ELEVATED RESULTS. TOTAL PROTEIN S/P/B 7.7 6.4 - 8.2 G/DL 04/26/2024 8:50 PM [facility] ALBUMIN S/P/B 3.6 3.4 - 5.0 G/DL 04/26/2024 8:50 PM DENTAL FLOSS PACKER [facility] AST 14(L) 15 - 37 U/L 04/26/2024 8:50 PM DENTAL FLOSS PACKER [facility] ALT 19 14 - 55 U/L 04/26/2024 8:50 PM DENTAL FLOSS PACKER [facility] ALKALINE PHOSPHATASE S/P/B 79 50 - 136 U/L 04/26/2024 8:50 PM DENTAL FLOSS PACKER [facility] ANION GAP 4.1 2 - 10 MMOL/L 04/26/2024 8:50 PM DENTAL FLOSS PACKER [facility] BUN CREATININE RATIO 13.9 6 - 26 04/26/2024 8:50 PM [facility] A/G RATIO 0.9(L) 1.0 - 2.0 RATIO 04/26/2024 8:50 PM [facility] GFR ESTIMATE 74(L) >90 ML/MIN/1.7 3 M2 04/26/2024 8:50 PM [facility] Comment: NOTE: eGFR is not calculated for patients <18 years of age or gender unknown. This is an estimated GFR calculation using the new CKD EPI creatinine equation without race and so does not require a correction factor for race. This estimated GFR should not be used for calculating drug doses. 04/26/2024 7:41 PM DENTAL FLOSS PACKER us Apryl [facility]ORAT[facility] Final Result [facility] [address] [place] [address], [place] [phone] * Qualitative HCG (04/26/2024 7:41 PM DENTAL FLOSS PACKER) PREG SCREEN-SERUM NEGATIVE 04/26/2024 8:09 PM DENTAL FLOSS PACKER [facility] 04/26/2024 7:41 PM DENTAL FLOSS PACKER us Apryl MACIAS LABORAT[facility] Final Result [facility] [address] [place] [address], * (ABNORMAL) CBC W/DIFF AUTOMATED (04/26/2024 7:41 PM DENTAL FLOSS PACKER) [facility] WBC 9.67 4.5 - 11.0 x10'3/uL 04/26/2024 7:54 PM DENTAL FLOSS PACKER [facility] RBC 3.53(L) 4.20 - 5.40 x10'6/uL 04/26/2024 7:54 PM DENTAL FLOSS PACKER [facility] HGB 8.9(L) 12.0 - 16.0 G/DL 04/26/2024 7:54 PM [facility] HCT 28.8(L) 38.0 - 48.0 % 04/26/2024 7:54 PM DENTAL FLOSS PACKER [facility] MCV 81.6 81.0 - 99.0 FL 04/26/2024 7:54 PM [facility] MCH 25.2(L) 27.0 - 31.0 PG 04/26/2024 7:54 PM [facility] MCHC 30.9(L) 32.0 - 36.0 G/DL 04/26/2024 7:54 PM [facility] RDW 14.6(H) 11.5 - 14.5 % 04/26/2024 7:54 PM [facility] PLT 399 130 - 400 x10'3/uL 04/26/2024 7:54 PM [facility] MPV 9.2(L) 9.3 - 12.2 FL 04/26/2024 7:54 PM [facility] DIFFERENTIAL TYPE AUTOMATED DIFFERENTIAL 04/26/2024 7:54 PM DENTAL FLOSS PACKER [facility] NEUTROPHILS % 64.2 % 04/26/2024 7:54 PM DENTAL FLOSS PACKER [facility] LYMPHOCYTES % 25.3 % 04/26/2024 7:54 PM DENTAL FLOSS PACKER [facility] MONOCYTES % 8.8 % 04/26/2024 7:54 PM DENTAL FLOSS PACKER [facility] EOSINOPHILS 0.7 % 04/26/2024 7:54 PM DENTAL FLOSS PACKER [facility] BASOPHILS 0.6 % 04/26/2024 7:54 PM DENTAL FLOSS PACKER [facility] IMMATURE GRANS % 0.4 % 04/26/19 7:54 PM DENTAL FLOSS PACKER [facility] ABS. NEUTROPHILS 6.20 1.80 - 7.70 x10'3/uL 04/26/2024 7:54 PM DENTAL FLOSS PACKER [facility] ABS. LYMPHOCYTES 2.45 1.00 - 4.80 x10'3/uL 04/26/2024 7:54 PM DENTAL FLOSS PACKER [facility] ABS. MONOCYTES 0.85 0.24 - 0.86 x10'3/uL 04/26/2024 7:54 PM DENTAL FLOSS PACKER [facility] ABS. EOSINOPHILS 0.07 0.04 - 0.36 x10'3/uL 04/26/2024 7:54 PM DENTAL FLOSS PACKER [facility] ABS. BASOPHILS 0.06 0.01 - 0.08 x10'3/uL 04/26/2024 7:54 PM DENTAL FLOSS PACKER [facility] ABS. IMMATURE GRANULOCYTES 0.04 0.00 - 0.49 x10'3/uL 04/26/2024 7:54 PM DENTAL FLOSS PACKER [facility] 04/26/2024 7:41 PM DENTAL FLOSS PACKER us Apryl [facility]IAS [facility]ORAT[facility] Final Result [facility] [address] [place] [address], [place] [phone] * MAGNESIUM (04/26/2024 7:35 PM DENTAL FLOSS PACKER) MAGNESIUM 2.0 1.8 - 2.4 MG/DL 04/26/2024 10:05 PM DENTAL FLOSS PACKER [facility] 04/26/2024 7:35 PM DENTAL FLOSS PACKER us Krysten MACIAS [facility]OR[facility] Final Resu lt [facility] [address] [place] [address], [place] [phone] * US PELVIC NON OB COMP TA+TV (03/02/2024 3:13 PM DENTAL FLOSS PACKER) Anatomical Region Laterality Modality Pelvis Ultrasound 03/02/2024 4:17 PM DENTAL FLOSS PACKER Impressions 03/02/2024 4:39 PM DENTAL FLOSS PACKER IMPRESSION: 1. Mildly enlarged heterogeneous uterus. In the central uterus is a heterogeneous hyperechoic 3 cm mass which may be a submucosal leiomyoma although endometrial mass is not excluded. Additional 3.2 cm and 1.6 cm hypoechoic lesions suggesting leiomyomas. Uterine lesions could be further evaluated and characterized on MRI pelvis without and with contrast. 2. No acute ovarian or adnexal abnormality. 3. Minimal fluid in the posterior cul-de-sac is likely physiologic. Ordered By: JOSE R TERESA Interpreted By: Ayo Adrian, 03/02/2024 4:17 PM Narrative 03/02/2024 4:39 PM DENTAL FLOSS PACKER [facility] [address] [place], [place] [address] IMAGING STUDIES: ??US PELVIC NON OB COMP TA+TV ? DATE: ??03/02/2024 2:21 PM HISTORY: ??BENIGN NEOPLASM OF CONNECTIVE AND OTHER SOFT TISSUE UNSPECIFIED ?? . 53-year-old female. Prolonged menstrual periods with heavy bleeding and passing clots. She reports that she has had menstrual bleeding for approximately one month (starting 02/01/2024) and has not completely stopped with current spotting. History of uterine leiomyomas. Patient is reportedly scheduled for a hysterectomy in May. Prior surgical history of 2 C-sections and tubal ligation. COMPARISON: ??Ultrasound pelvis 02/06/2019. DISCUSSION: Transabdominal pelvic ultrasound: Anteverted uterus is ??9.6 x 6.1 x 6.4 cm. Endometrium is not adequately visualized on transabdominal imaging. Heterogeneous uterine echotexture. Approximately 4.6 x 4 x 4 cm mildly hyperechoic heterogeneous region of the uterus. Right ovary 2.6 x 1.2 x 2 cm. Right ovarian follicles of up to 8 mm. Normal color Doppler imaging of the right ovary. Left ovary is not visualized on transabdominal imaging. Endovaginal pelvic ultrasound: Anteverted uterus is ??10.2 x 5.9 x 6.1 cm. Endometrium 7.4 mm thickness. Multiple cervical nabothian cysts of up to 5 mm (nabothian cysts of up to 11 mm on 2019 ultrasound). Heterogeneous uterine echotexture. In the posterior uterus is a 2.8 x 2.3 x 3.2 cm hypoechoic partially exophytic mass most suggestive of leiomyoma. Toward the central uterus is a heterogeneous mildly hyperechoic mass of 2.8 x 3 x 2.7 cm which may be a submucosal leiomyoma although mass originating from the endometrium is not excluded. In the right uterus is a hypoechoic 1.6 x 1.3 x 1.3 cm structure most suggestive of submucosal leiomyoma. On 2019 ultrasound, posterior uterine 1.6 cm hypoechoic lesion suggesting leiomyoma. Right ovary 2.7 x 1.7 x 2.5 cm. 7 mm right ovarian follicle. Left ovary 2.3 x 1.6 x 2.3 cm. Color Doppler and pulse Doppler imaging of the ovaries and adnexa are within normal limits. Minimal fluid in the posterior cul-de-sac (approximately 1.9 x 0.7 cm) is likely physiologic. Procedure Note Ayo Adrian MD - 03/02/2024 [facility] [address] [place], [place] [address] IMAGING STUDIES: US PELVIC NON OB COMP TA+TVDATE: 03/02/2024 2:21PM HISTORY: BENIGN NEOPLASM OF CONNECTIVE AND OTHER SOFT TISSUE UNSPECIFIED. 53-year-old female. Prolonged menstrual periods with heavybleeding and passing clots. She reports that she has had menstrualbleeding for approximately one month (starting 02/01/2024) and has notcompletely stopped with current spotting. History of uterine leiomyomas.Patient is reportedly scheduled for a hysterectomy in May. Priorsurgical history of 2 C-sections and tubal ligation. COMPARISON: Ultrasound pelvis 02/06/2019. DISCUSSION: Transabdominal pelvic ultrasound: Anteverted uterus is 9.6 x 6.1 x 6.4 cm. Endometrium is not adequatelyvisualized on transabdominal imaging. Heterogeneous uterine echotexture.Approximately 4.6 x 4 x 4 cm mildly hyperechoic heterogeneous region ofthe uterus. Right ovary 2.6 x 1.2 x 2 cm. Right ovarian follicles of up to 8 mm.Normal color Doppler imaging of the right ovary. Left ovary is not visualized on transabdominal imaging. Endovaginal pelvic ultrasound: Anteverted uterus is 10.2 x 5.9 x 6.1 cm. Endometrium 7.4 mm thickness.Multiple cervical nabothian cysts of up to 5 mm (nabothian cysts of up to11 mm on 2019 ultrasound). Heterogeneous uterine echotexture. In theposterior uterus is a 2.8 x 2.3 x 3.2 cm hypoechoic partially exophyticmass most suggestive of leiomyoma. Toward the central uterus is aheterogeneous mildly hyperechoic mass of 2.8 x 3 x 2.7 cm which may be asubmucosal leiomyoma although mass originating from the endometrium is notexcluded. In the right uterus is a hypoechoic 1.6 x 1.3 x 1.3 cm structuremost suggestive of submucosal leiomyoma. On 2019 ultrasound, posterior uterine 1.6 cm hypoechoic lesion suggestingleiomyoma. Right ovary 2.7 x 1.7 x 2.5 cm. 7 mm right ovarian follicle. Left ovary 2.3 x 1.6 x 2.3 cm. Color Doppler and pulse Doppler imaging of the ovaries and adnexa arewithin normal limits. Minimal fluid in the posterior cul-de-sac (approximately 1.9 x 0.7 cm) islikely physiologic. IMPRESSION: 1. Mildly enlarged heterogeneous uterus. In the central uterus is aheterogeneous hyperechoic 3 cm mass which may be a submucosal leiomyomaalthough endometrial mass is not excluded. Additional 3.2 cm and 1.6 cmhypoechoic lesions suggesting leiomyomas. Uterine lesions could be furtherevaluated and characterized on MRI pelvis without and with contrast. 2. No acute ovarian or adnexal abnormality. 3. Minimal fluid in the posterior cul-de-sac is likely physiologic. Ordered By: JOSE R TERESA Interpreted By: Ayo Adrian, 03/02/2024 4:17 PM us Jose R Teresa MD ULTRASOUND Final Result * MG SCREENING W WIN ROCHELLE DIGI (05/29/2020 8:00 AM DENTAL FLOSS PACKER) Anatomical Region Laterality Modality Breast Bilateral Mammography 05/29/2020 8:28 AM DENTAL FLOSS PACKER Impressions 05/29/2020 8:29 AM DENTAL FLOSS PACKER =====IMPRESSION:===== No mammographic findings suggestive of malignancy. ASSESSMENT: ACR BI-RADS CATEGORY 2 - BENIGN FINDING(S) RECOMMENDATION: 1: Routine screening mammogram ??bilateral ??in 1 year COMMENTS: ? Narrative 05/29/2020 8:29 AM DENTAL FLOSS PACKER EXAMINATION: Digital bilateral screening mammogram with 3-D tomosynthesis EXAM DATE/TIME: 05/29/2020 7:41 AM REASON FOR EXAM: ??SCREENING ? COMPARISON: 2018, 2016, 2015 TECHNIQUE: Digital screening mammography of both breasts was performed in addition to 3-D Tomosynthesis technique. This study was read with the assistance of a computer-aided detection system. TISSUE DENSITY: The breast tissue is heterogeneously dense. FINDINGS: No suspicious masses, malignant appearing calcifications, skin thickening or other abnormalities are present. ??No significant change from the prior exam. us Candace Forbes MD MAMMO Final Res ult from Last 3 Months or Most Recently Relevant to Health Maintenance Insurance [employer] OPEN ACCESS [facility] Care Teams Network Developer Relationship Specialty Start Date End Date Travis Allen PA [address] [place] [address] [id number] PCP - General 08/10/16
--- OUTSIDE RECORDS SUMMARY | 2024-05-18 01:11 | XMS_ITS | Clinical Summary ---
Author Organization [facility] Address [address] [facility] Attn: Epic Prelude ADT STEFANIA OQUENDO MORIS [id number] Care Team Providers Care Truck Spotter Name Role Phone Unavailable Primary Care Provider Unavailabl e Social History Tobacco Use Types Packs/Day Years Used Date Smoking Tobacco: Never Assessed Comments Unknown Sex and Gender Information Value Date Recorded Sex Assigned at Not on file Legal Sex Female 4:53 AM HAND PLATE STACKER Gender Identity Not on file Sexual Orientation Not on file Plan of Treatment Health Maintenance Due Date Last Done Comments DTAP/TDAP/TD VACCINES (1 - Tdap) 12/10/1990 HEPATITIS B VACCINES (1 of 3 - 19+ 3-dose series) 12/10/1990 CERVICAL CANCER SCREENING 12/10/2001 BREAST CANCER SCREENING 2011 COLORECTAL SCREENING 12/10/2016 Colorectal Cancer Screening 12/10/2016 FIT-DNA Q 3 years 12/10/2016 FIT/FOBT Q 1 year 12/10/2016 Flex Sig/CT Colonography Q 5 years 12/10/2016 ZOSTER VACCINE (1 of 2) 12/10/2021 INFLUENZA VACCINE (#1) 2023 PNEUMOCOCCAL VACCINE 0-64 YEARS Aged Out No longer eligible based on patient's age to complete this topic
--- OUTSIDE RECORDS SUMMARY | 2024-05-18 01:11 | XMS_ITS | Encounter Summary ---
Author Organization [facility] Address [address] [place] [address]. [place] [address] [place] [address] Care Team Providers Care Supervisor Engine Assembly Name Role Phone Travis Allen Primary Care Provider [phone] Encounter Details Date Type Department Care Team (Late st Contact Info) Description 11/13/2020 Prep for Procedure [facility] [place] [address] Veronica Guzman MD [address] [facility] [address] [place] [address] Social History Tobacco Use Types Packs/Day Years Used Date Smoking Tobacco: Never Smokeless Tobacco: Never Alcohol Use Standard Drinks/Week Comments Yes 0 (1 standard drink = 0.6 oz pur e alcohol) social Comments Unknown Sex and Gender Information Value Date Recorded Sex Assigned at Not on file Legal Sex Female 5:01 PM CDT Gender Identity Not on file Sexual Orientation Not on file documented as of this encounter Plan of Treatment Not on file documented as of this encounter Visit Diagnoses Diagnosis Encounter for screening colonoscopy- Primary Special screening for malignant neoplasms, colon documented in this encounter Care Teams Supervisor Engine Assembly Relationship Specialty Start Date End Date Travis Allen PA [address] [facility] [address] [place] [address] PCP - General 08/10/16 documented as of this encounter
--- NOTE | 2024-05-18 05:58 | ECG_ITS ---
Test Date: 2024-05-18 06:40:19 Measurements Intervals [place] Rate: 67 P: 35 NV: 204 QRS: 18 QRSD: 98 T: 29 QT: 400 QTc: 423 Interpretive Statements SINUS RHYTHM No previous ECG available for comparison Electronically Signed On 05-18-2024 11:41:09 POLE SETTER by Mak Barraza M.D.
--- NOTE | 2024-05-18 07:11 | WPDANESEPPF ---
Anes - Initial Pre Proc Eval Procedure: Operation Date: 05/18/24 07:30 Proposed Procedures p Robotic Laparoscopic Assisted Total Vaginal Hysterectomy, Bilateral Salpingo Oophorectomy, Possible Total Abdominal Hysterectomy - Jose R Murdock MD Date/Time: 05/18/24 07:11 Surgeon: Jose R Murdock MD Pre Op Diagnosis: Sym Fibroid Uterus Patient Data Age: 53 Gender: F Height: 1.63 m Weight: 84 kg Allergies Allergy/AdvReac Type Severity Reaction Status Date / Time No Known Allergies Allergy Verified 05/12/24 14:29 Home Medications ?Medication ?Instructions ?Recorded ?Confirmed ?Type enalapril 10 1 tablet PO DAILY 02/14/19 05/05/24 History mg-hydrochlorothiazide 25 mg tablet (Vaseretic) escitalopram oxalate 10 mg tablet 10 mg PO DAILY 06/25/23 05/05/24 History multivitamin (Daily Multi-Vitamin 1 tablet PO DAILY 04/06/24 05/05/24 History tablet) relugolix 40 mg-estradiol 1 1 tablet PO DAILY #90 tabs 04/06/24 05/05/24 Rx mg-norethindrone acetate 0.5 mg tablet (Myfembree) ferrous sulfate 325 mg (65 mg 325 mg PO DAILY 05/02/24 05/05/24 History iron) tablet,delayed release mecobalamin (vitamin B12) 1,000 1,000 mcg PO DAILY 05/02/24 05/05/24 History mcg chewable tablet (B12 Active) Patient hx anesthesia problems: none Family hx anesthesia problems: none Results Review: All pre-operative results and documents have been reviewed as part of the pre-operative evaluation. [facility] Past Medical History Medical History Anxiety (normal spontaneous vaginal delivery) GERD (gastroesophageal reflux disease) HTN (hypertension) Surgical History Surgical History Hx of dilation and curettage Status post breast reduction H/O tubal ligation History of x 2 Family History Family History Mother Asthma Diabetes mellitus Hypertension Cerebrovascular accident Father Alcoholism Sibling Malignant neoplasm of prostate Crohn's disease Grandparent Diabetes mellitus Cerebrovascular accident Social History Social History Smoking status: Never smoker Alcohol intake: current Drinks per week: 2 Substance use: never Living arrangements: with family Spiritual care concerns: No Anes - Eval Final PreProcedure Day of Procedure 05/18/24 07:11 Patient weight: overweight Heart: regular rate and rhythm Lungs: clear to auscultation Airway: Mallampati scale class II Neurological: alert and oriented Last oral intake: >/= 8 hours ASA classification: III Emergent: no Anesthetic plan: proceed Anesthesia type and monitoring: general ETT and standard monitoring Results Review: All pre-operative results and documents have been reviewed as part of the pre-operative evaluation. Informed Consent: The patient's anesthetic plan and its attendant risks and benefits were discussed with the patient/family/POA. Questions were solicited and answers provided to the satisfaction of the patient/family/POA.
[2024-05-18] MEDS: ENOXAPARIN 40 MG/0.4 ML SYRINGE SUB-Q (07:20)
[2024-05-18] MEDS: LACTATED RINGERS 1,000 ML 30 ML IV CONT (07:20)
[2024-05-18] MEDS: ACETAMINOPHEN 500 MG TABLET 1000 MG PO ×3 (07:20→20:41)
[2024-05-18] MEDS: SCOPOLAMINE 1 MG PATCH 1 PATCH TRANSDERM (07:20)
--- NOTE | 2024-05-18 07:25 | WPDHPUPDATE1 ---
History and Physical Update Update Date/Time: 05/18/24 07:25 History and Physical has been reviewed, including an updated exam of the patient. There are NO changes in the patient's condition. Risks, benefits, and alternatives have been discussed and questions answered. Patient agrees to proceed with procedure.
[2024-05-18] MEDS: ceFAZolin 2 GM/D5W 50 ML 2 GM/50 ML BAG IVPB (07:30)
[2024-05-18] MEDS: BUPivacaine HCL 0.5% 10 ML AMP 20 ML INFILTRATE (09:24)
--- NOTE | 2024-05-18 10:20 | W.PM.PROC2 ---
Procedure Note - Detailed Date of Procedure 05/18/24 Pre-op Diagnosis Sym Fibroid Uterus Post-op Diagnosis Same Procedure Performed Laparoscopic robotic assisted total vaginal hysterectomy with bilateral salpingo-oophorectomy Surgeon Jose R Murdock MD Wood Cabinet Finisher matt Anesthesia General Indications symptomatic fibroid uterus causing severe anemia. Findings Uterus enlarged approximately 10 weeks with multiple sub serosal and intramural fibroids normal fallopian tubes and ovaries Description of Procedure After informed consent was obtained she was taken to the operating room and general endotracheal anesthesia was administered. She was placed in low lithotomy position. She was and prepped and draped in sterile fashion. Tran catheter placed in bladder. Attention was turned to the vagina speculum was inserted. Single-tooth tenaculum placed on anterior lip of the cervix the uterus sounded to 10 cm. The cervix was dilated to a 8 Short dilator. A size 10 uterine manipulator was inserted and secured. A size 3.0 colp cup was secured in the vagina. Then attention was turned to the abdomen with new sterile gloves. .5% marcaine injected subcutaneously. An incision was made horizontal 2 cm above the umbilicus. The subcutaneous tissue was dissected with S retractors. Anterior and posterior fascia grasped with clamp and incised. Peritoneum entered. No adhesions palpated. The fascia sutures were secured with 0 vicryl. The robotic hysson port and camera inserted into abdomen and secured to fascial sutures. A Pneumoperitoneum of 15 mm per mercury was obtained. She was placed in Trendelenburg position. No abdominal or pelvic adhesions noted. Adhesions noted at the bladder reflection. A small incision was made approximately 6 cm lateral to the port on the left side of the port. A size 8mm robotic port was inserted under laparoscopic visualization into the abdomen on the left side. Another incision superior and medical was made and robotic port inserted. attention was turned to the right side of the abdomen Marcaine injected subcutaneously an incision was made lateral and medial. Robotic ports were inserted under laparoscopic visualization at the incision sites and community assistant port inserted. Robotic arms were attached to the ports. Attention was turned to the surgery consult. Attention was turned to the right round ligament which was ligated the anterior leaf of the broad ligament was ligated anteriorly. Dense adhesions of the bladder to the lower uterine segment were dissected freeing up the bladder from the right side of the lower uterine segment. The right Infundibulopelvic ligament was ligated with the vessel sealer. The a posterior leaf of the broad ligament was further dissected. The ascending uterine vessels on the right were cauterized. The uterine vessels were ligated. Attention was turned to the left round ligament which was ligated and the anterior leaf of the broad ligament was dissected anteriorly. The rest of the dense adhesions of the bladder to the vesicouterine peritoneum were dissected. allowing retraction of the bladder below the palpable cup. Once the bladder was dissected below the colp cup then the posterior leaf of the broad ligament was further dissected. The left infundibulopelvic ligament was ligated. The ascending uterine vessels were ligated. The uterine arteries were ligated. The cardinal ligaments were ligated. This was done on both sides. An incision was made anterior colpotomy incision was made and this was carried around until the cervix was removed from the vagina. The uterus and cervix were removed through the vagina. The vaginal cuff was closed in a running fashion with 0 V lock suture. Hemostasis was noted. The pelvis was irrigated. Hemostasis noted. Hemoderm was applied in the pelvis. The patient was taken out of Trendelenburg position. The pneumoperitoneum was released and the ports were removed. The fascial stitch at the supraumbilical incision was approximated with O vicryl. The skin incisions were closed with 4 O Vicryl and skin glue. The patient was extubated in operating room. The sponge count was correct x2. Patient tolerated procedure well and was taken to recovery in stable condition. Estimated Blood Loss 50 Packing No Pathology Yes ( uterus with cervix and right and left fallopian tubes and ovaries.) Complications No immediate complications Condition Stable Disposition PACU [facility] Billing Surgery - Charge Forward: Surgery Billing
[2024-05-18] MEDS: fentaNYL CITRATE INJ (*CRX) 100 MCG/2 ML VIAL 25 MCG IV PUSH ×5 (10:40→11:39)
--- NOTE | 2024-05-18 11:52 | PC.NURSE ---
This patient, Isabela Mcgarry, was received from PACU via bed on 05/18/24 at 1152. Patient/family oriented to unit policies and routines.
[2024-05-18] MEDS: oxyCODONE HCL (*CRX) 5 MG TAB IR 10 MG PO (12:34)
[2024-05-18] MEDS: SIMETHICONE 80 MG TAB.CHEW PO ×3 (12:34→21:05)
[2024-05-18] MEDS: DEXTROSE 5%/0.45% SOD CHL 1,000 ML 125 ML IV CONT ×2 (12:35→20:58)
[2024-05-18] MEDS: KETOROLAC 15 MG/ML VIAL (*BKC) IV PUSH ×2 (13:46→20:40)
--- NOTE | 2024-05-18 16:34 | PC.NURSE ---
On 05/18/24, the [facility] technology architect, provided care and completed [employer] documentation on this patient. I have reviewed the student's documentation and agree with the findings.
[2024-05-18] MEDS: DOCUSATE SODIUM 100 MG CAPSULE PO (16:40)
[2024-05-18] MEDS: oxyCODONE HCL (*CRX) 5 MG TAB IR PO (18:58)
[2024-05-18] MEDS: SENNA/DOCUSATE SODIUM TABLET 2 TAB PO (20:42)
[2024-05-19] VITALS: BP 124/77; PULSE 88; RESP 16; TEMP 36.8; O2SAT 95
[2024-05-19] MEDS: ACETAMINOPHEN 500 MG TABLET 1000 MG PO ×2 (03:44→10:20)
[2024-05-19] MEDS: IBUPROFEN 600 MG TABLET PO ×2 (03:45→10:20)
[2024-05-19 04:00] VITALS: BP 139/76; PULSE 84; RESP 95; TEMP 36.8; O2SAT 18
[2024-05-19] MEDS: ENALAPRIL MALEATE 10 MG TABLET PO (07:57)
[2024-05-19] MEDS: hydroCHLOROthiazide 25 MG TABLET PO (07:57)
[2024-05-19] MEDS: FERROUS SULFATE 325 MG TABLET DR PO (07:57)
[2024-05-19] MEDS: DOCUSATE SODIUM 100 MG CAPSULE PO (07:57)
[2024-05-19 07:58] VITALS: BP 148/93; PULSE 88; RESP 16; TEMP 36.7; O2SAT 93
[2024-05-19] MEDS: SIMETHICONE 80 MG TAB.CHEW PO (07:58)
[2024-05-19] MEDS: ESCITALOPRAM OXALATE 10 MG TABLET PO (07:58)
--- NOTE | 2024-05-19 09:07 | P.PNOB_ITS ---
TITLE ASSISTANT - A/P Assessment and plan (1) History of hysterectomy: Code(s): Z90.710 - Acquired absence of both cervix and uterus Status: Acute Assessment and Plan: POD1 s/p RVH doing well. Adequate pain control. Encourage ambulation. Anticipate discharge this am. Postoperative Procedures: Procedures Operation Date: 05/18/24 07:30 Actual Procedure Side Surgeon p Robotic Laparoscopic Assisted Total Vaginal Hysterectomy, Bilateral Salpingo Oophorectomy Not Applicable Jose R Murdock MD Time Spent With Patient Time: Total time spent is greater than 50% in coordination of care (as documented) at patient's floor/unit and/or counseling patient: Time with patient: 15 - 25 minutes TITLE ASSISTANT- PN:Subj Post-Op Subjective Date/time seen: 05/19/24 09:07 Interval history: She has set up in a chair. She has not ambulated. She reports positive flatus. She has had a good pain control with the oral pain medicines. Mild spotting. Has not had spontaneous void after catheter removal yet. Subjective: pain is well controlled and patient is tolerating oral intake Review of Systems Review of Systems: All systems reviewed & are unremarkable except as noted in HPI and below Cardiovascular: Cardiovascular: Reports no additional cardiovascular complaints Respiratory: Respiratory: Reports no additional respiratory complaints Gastrointestinal: Gastrointestinal: Reports belching, Denies nausea and Denies vomiting Genitourinary: Genitourinary: Reports no additional female genitourinary complaints Musculoskeletal: Musculoskeletal: Reports no additional musculoskeletal complaints Exam Const: General: comfortable and no acute distress Orientation/consciousness: oriented to person, oriented to place and oriented to time Eyes: General: appearance normal, both eyes and all related structures Resp: Effort & Inspection: normal respiratory effort Auscultation: clear to auscultation bilaterally Cardio: Rate: regular rate Rhythm: regular rhythm GI: GI Palp: Yes Soft to palpation and No Tenderness to palpation present (GI) Auscultation: normal bowel sounds Other: mild distended, incisions intact Neuro: General: oriented to person, oriented to place and oriented to time Extrem: General: normal to inspection and no calf tenderness Psych: Mental Status: mental status grossly normal TITLE ASSISTANT - PN: Obj Data Vital Signs Vital Signs: Vital Signs - 24 hr 05/18/24 10:25 05/18/24 10:40 05/18/24 10:55 Temperature 97.2 F L Pulse Rate 96 80 74 Respiratory Rate 17 9 L 12 Blood Pressure 155/96 H 159/101 H 130/85 Pulse Oximetry 97 100 93 Oxygen Delivery Simple Face Mask Simple Face Mask Simple Face Mask Oxygen Flow Rate 8 10 10 05/18/24 11:10 05/18/24 11:25 05/18/24 11:40 Temperature Pulse Rate 73 58 L 76 Respiratory Rate 10 L 13 12 Blood Pressure 138/83 136/92 H 114/81 Pulse Oximetry 95 94 92 Oxygen Delivery Nasal Cannula Nasal Cannula Nasal Cannula Oxygen Flow Rate 2 2 2 05/18/24 11:55 05/18/24 12:05 05/18/24 16:01 Temperature 97 F L 97.2 F L Pulse Rate 72 80 Respiratory Rate 16 16 Blood Pressure 143/80 H 145/84 H Pulse Oximetry 96 96 100 Oxygen Delivery Nasal Cannula Oxygen Flow Rate 2 05/18/24 16:45 05/18/24 20:00 05/19/24 00:00 Temperature 98.3 F 98.2 F Pulse Rate 76 88 Respiratory Rate 18 16 Blood Pressure 149/90 H 124/77 Pulse Oximetry 97 95 Oxygen Delivery Room Air Oxygen Flow Rate 05/19/24 04:00 Temperature 98.3 F Pulse Rate 84 Respiratory Rate 95 H Blood Pressure 139/76 Pulse Oximetry 18 L Oxygen Delivery Oxygen Flow Rate Intake/Output Intake/Output: Intake & Output 05/16/24 05/17/24 05/18/24 05/19/24 23:59 23:59 23:59 23:59 Intake Total 1800 Output Total 475 500 Balance 1325 -500 Meds/Results Medications: Active Medications Generic Name Dose Route Start Last Admin Trade Name Ambar PRN Reason Stop Dose Admin Acetaminophen 1,000 mg 05/18/24 12:00 05/19/24 03:44 Acetaminophen 500 Mg Tablet PO 1,000 mg Q6HR GIANCARLO Administration Hydrocodone Bitart/Acetaminophen 1 tab 05/18/24 10:06 Hydrocodone/Acetaminophen (*Crx) 5-325 Mg Tablet PO Q3H PRN Pain Rated 4-6 Hydrocodone Bitart/Acetaminophen 1 tab 05/18/24 10:06 Hydrocodone/Acetaminophen (*Crx) 10-325 Mg Tablet PO Q3H PRN Pain Rated 7-10 Docusate Sodium 100 mg 05/18/24 17:00 05/19/24 07:57 Docusate Sodium 100 Mg Capsule PO 100 mg BID GIANCARLO Administration Enalapril Maleate 10 mg 05/19/24 09:00 05/19/24 07:57 Enalapril Maleate 10 Mg Tablet PO 10 mg QAM GIANCARLO Administration Escitalopram Oxalate 10 mg 05/19/24 09:00 05/19/24 07:58 Escitalopram Oxalate 10 Mg Tablet PO 10 mg DAILY GIANCARLO Administration Fentanyl Citrate 25 mcg 05/18/24 07:12 05/18/24 11:39 Fentanyl Citrate Inj (*Crx) 100 Mcg/2 Ml Vial IV PUSH 25 mcg Q2M PRN Administration Pain Ferrous Sulfate 325 mg 05/19/24 09:00 05/19/24 07:57 Ferrous Sulfate [address] PO 325 mg DAILY GIANCARLO Administration Hydrochlorothiazide 25 mg 05/19/24 09:00 05/19/24 07:57 Hydrochlorothiazide 25 Mg Tablet PO 25 mg QAM GIANCARLO Administration Dextrose/Sodium Chloride 1,000 mls @ 125 mls/hr 05/18/24 10:10 05/18/24 20:58 Dextrose 5% Sodium Chloride 0.45% IV CONT 125 mls/hr .Q8H GIANCARLO Administration Ibuprofen 600 mg 05/19/24 06:00 05/19/24 03:45 Ibuprofen 600 Mg Tablet PO 600 mg Q6HR GIANCARLO Administration Morphine Sulfate 4 mg 05/18/24 10:06 Morphine Sulfate (*Crx) 4 Mg/Ml Inj IV PUSH Q4H PRN Breakthrough Pain Rated 7-10 or NPO Naloxone HCl 0.1 mg 05/18/24 10:01 Naloxone Hcl 0.4 Mg/Ml Vial IV PUSH Q2M PRN Respiratory rate less than 10 Ondansetron HCl 4 mg 05/18/24 10:01 Ondansetron Inj 4 Mg/2 Ml Vial IV PUSH Q6H PRN Nausea And Vomiting Oxycodone HCl 5 mg 05/18/24 07:12 05/18/24 18:58 Oxycodone Hcl (*Crx) 5 Mg Tab Ir PO 5 mg ONCE PRN Administration Pain Oxycodone HCl 5 mg 05/18/24 10:01 Oxycodone Hcl (*Crx) 5 Mg Tab Ir PO Q4H PRN Pain Rated 4-6 Oxycodone HCl 10 mg 05/18/24 10:01 05/18/24 12:34 Oxycodone Hcl (*Crx) 5 Mg Tab Ir PO 10 mg Q6H PRN Administration Pain Rated 7-10 Senna/Docusate Sodium 2 tab 05/18/24 21:00 05/18/24 20:42 Senna/Docusate Sodium Tablet PO 2 tab HS GIANCARLO Administration Simethicone 80 mg 05/18/24 12:00 05/19/24 07:58 Simethicone 80 Mg Tab.Chew PO 80 mg TIDWM GIANCARLO Administration
== END 2024-05-19 11:25 | disposition home or self-care (01) ==
LOC: ANHSURGERY 06:05 → ANHOB2 15:55
PROVIDERS: PCP Physician Assistant; Visit Provider Obstetrics & Gynecology
PROC: (CPT 58552; principal; 2024-05-18 07:30)
DX: D25.1 Intramural leiomyoma of uterus (principal); D25.2 Subserosal leiomyoma of uterus; D25.0 Submucous leiomyoma of uterus; K66.0 Peritoneal adhesions (postprocedural) (postinfection); F41.9 Anxiety disorder, unspecified; K21.9 Gastro-esophageal reflux disease without esophagitis; I10 Essential (primary) hypertension; G89.18 Other acute postprocedural pain; Z98.890 Other specified postprocedural states; Z98.51 Tubal ligation status; Z80.42 Family history of malignant neoplasm of prostate; Z82.49 Family history of ischemic heart disease and other diseases of the circulatory system
CPT/HCPCS: 58552; S2900; 36415; 86850; 86900; 86901; 88307; 93005; 99199; A9270; J0690; J1100; J1650; J1885; J2250; J2270; J2371; J2405; J2704; J3010; J7120

== ENCOUNTER 2024-06-21 15:07 | Outpatient (CLI) | payer OTHER, SELFPAY ==
[2024-06-21 15:20] LABS: Hematocrit 41.4 % (37.0-47.0); Hemoglobin 13.1 g/dL (12.0-15.0); Mean Corpuscular HGB Conc 31.6 g/dl (32-36); Mean Corpuscular Hemoglobin 27.8 pg (26-34); Mean Corpuscular Volume 87.9 fl (80-100); Mean Platelet Volume 9.6 fl (7.4-10.4); Platelet Count Result 365 k/mm3 (150-375); Red Blood Count 4.71 M/mm3 (4.2-5.4); Red Cell Distribution Width 16.8 % (11.5-14.5); White Blood Count 9.7 K/mm3 (4.5-10.0)
--- OUTSIDE RECORDS SUMMARY | 2024-06-21 16:54 | XMS_ITS | Encounter Summary ---
Author Organization [facility] Address [address] [place] [id number] Care Team Providers Care Fire Information Officer Name Role Phone Travis Allen Primary Care Provider Encounter Details Date Type Department Care Team (Late st Contact Info) Description 11/13/2020 Prep for Procedure [facility] [place] [address] Veronica Guzman MD [address] [facility] [address] [place] [address] Social History Tobacco Use Types [...] colon documented in this encounter Care Teams Fire Information Officer Relationship Specialty Start Date End Date Travis Allen PA [address] [facility] [address] [place], [place] [id number] PCP - General 08/10/16 documented as of this encounter
--- OUTSIDE RECORDS SUMMARY | 2024-06-21 16:54 | XMS_ITS | Encounter Summary ---
Author Organization [facility] Address 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
--- OUTSIDE RECORDS SUMMARY | 2024-06-21 16:54 | XMS_ITS | Clinical Summary ---
Author Organization [facility] Address [address] [place] [address] Care Team Providers Care Lab Technician Name Role Phone Travis Allen Primary Care Provider [phone] Allergies No known active allergies Medications omeprazole [...] daily with breakfast. 30 tablet 08/23/2023 Active Encounters Date Type Department Care Team Description 04/26/2024 7:32 PM ENDOSCOPY RN - 04/27/2024 2:04 AM [facility] Emergency [facility] [place] [address] Krysten Fowler PA Vaginal Bleeding Discharge Disposition: Home or Self Care (Routine Discharge) 04/26/2024 Travel from Last 3 Months Family History [...] Comments Blood Pressure 115/88 04/27/2024 12:58 AM ENDOSCOPY RN Pulse 103 04/27/2024 12:58 AM ENDOSCOPY RN Temperature 36.2 C (97.2 F) 04/27/2024 12:50 AM ENDOSCOPY RN Respiratory Rate 20 04/27/2024 12:58 AM ENDOSCOPY RN Oxygen Saturation 100% 04/27/2024 12:58 AM ENDOSCOPY RN Inhaled Oxygen Concentration - - Weight 81.6 kg (180 lb) 04/26/2024 7:14 PM ENDOSCOPY RN Height 160 cm (5' 3 ) 04/26/2024 7:14 PM ENDOSCOPY RN Body Mass Index 31.89 04/26/2024 7:14 PM ENDOSCOPY RN Plan of Treatment Health Maintenance Due Date [...] HEMOGLOBIN AND HEMATOCRIT STAT 04/26/2024 10:53 PM ENDOSCOPY RN ECG 12-LEAD STAT 04/26/2024 10:18 PM ENDOSCOPY RN TYPE & SCREEN STAT 04/26/2024 7:41 PM ENDOSCOPY RN CHORIONIC GONADOTROPIN HCG QL STAT 04/26/2024 7:41 PM ENDOSCOPY RN COMPREHENSIVE METABOLIC PANEL STAT 04/26/2024 7:41 PM ENDOSCOPY RN CBC W/DIFF AUTOMATED STAT 04/26/2024 7:41 PM ENDOSCOPY RN MAGNESIUM Routine 04/26/2024 7:35 PM ENDOSCOPY RN COLONOSCOPY Routine 11/25/2020 11:11 AM CDT MG SCREENING W WIN [place]HEL[place] DIGI Routine 05/29/2020 8:00 AM ENDOSCOPY RN Encounter for screening mammogram for malignant neoplasm of breast from Last 3 Months or Most Recently Relevant to Health Maintenance Results * (ABNORMAL) HEMOGLOBIN AND HEMATOCRIT (04/26/2024 10:53 PM ENDOSCOPY RN) HGB 8.0(L) 12.0 - 16.0 G/DL 04/26/2024 11:[address] [facility] HCT 25.3(L) 38.0 - 48.0 % 04/26/2024 11:[address] [facility] 04/26/2024 10:5 3 PM ENDOSCOPY RN us Krysten [facility] Final Resu lt [facility] [address] [place], [place] [address] [phone] * ECG 12 lead (04/26/2024 10:18 PM ENDOSCOPY RN) 04/26/2024 10:1 8 PM ENDOSCOPY RN Narrative [facility] ([facility]) RAD - 04/27/2024 3:[address] [facility] [address] [place] [address] Test Date: 2024-04-26 Pat Name: ISABELA PATRICIA Department: 41 Room: EXAM10 Gender: Female Wire Bender: DAMON : 1970 Requested By: KRYSTEN FOWLER Order Number: [id number] Reading : Leonard Marshall Measurements Intervals [place] Rate: 79 P: 24 UT: 164 QRS: 20 QRSD: 98 T: 53 QT: 388 QTc: 447 Interpretive Statements SINUS RHYTHM NONSPECIFIC T-WAVE ABNORMALITY Compared to ECG 07/03/2019 23:43:54 T-wave abnormality now present Sinus arrhythmia no longer present First degree AV block no longer present No ischemic changes Preliminary EKG Interpretation by Otis Sarmiento DO SCOPY RN Procedure Note Leonard Marshall MD - 04/27/2024 [facility] [address] [place] [address] Test Date: 2024-04-26 Pat Name: ISABELA MCGARRY Department: 41 Room: EXAM10 Gender: Female Wire Bender: DAMON : 1970 Requested By: KRYSTEN FOWLER Order Number: [id number] Reading : Leonard Marshall Measurements Intervals [place] Rate: 79 P: 24 UT: 164 QRS: 20 QRSD: 98 T: 53 QT: 388 QTc: 447 Interpretive Statements SINUS RHYTHM NONSPECIFIC T-WAVE ABNORMALITY Compared to ECG 07/03/2019 23:43:54 T-wave abnormality now present Sinus arrhythmia no longer present First degree AV block no longer present No ischemic changes Preliminary EKG Interpretation by Otis Sarmiento DO SCOPY RN us Krysten MACIAS ECG ORDERABLES Final Resu lt [facility] GELY ([facility]) RAD * TYPE & SCREEN (04/26/2024 7:41 PM ENDOSCOPY RN) ABO/RH O POSITIVE 04/26/2024 9:[address] [facility] ANTIBODY SCREEN NEGATIVE 04/26/2024 9:[address] [facility] SAMPLE EXPIRATION 04/29/2024,2 359 04/26/2024 9:[address] [facility] 04/26/2024 7:41 PM ENDOSCOPY RN Apryl MACIAS BLOOD BANK TEST ORDERABLES Fin al Result Performing Organization Address [facility]/ZIP Co de Phone Number [facility] [address] [place] [address], [place] [phone] * (ABNORMAL) COMPREHENSIVE METABOLIC PANEL (04/26/2024 7:41 PM ENDOSCOPY RN) GLUCOSE 138(H) 70 - 99 MG/DL 04/26/2024 8:[address] [facility] BUN 13 7 - 18 MG/DL 04/26/2024 8:[address] [facility] CREATININE S/P/B 0.93 0.55 - 1.02 MG/DL 04/26/2024 8:[address] [facility] SODIUM S/P/B 136 136 - 145 MMOL/L 04/26/2024 8:[address] [facility] POTASSIUM S/P/B 2.9(LL) 3.5 - 5.1 MMOL/L 04/26/2024 8:50 PM ENDOSCOPY RN [facility] Comment: Critical Result(s) Called at: 20:49:31 on 04/26/2024 by: Magda Marion to and read back by:JORDEN DE LA TORRE CHLORIDE S/P/B 103 97 - 115 MMOL/L 04/26/2024 8:50 PM [facility] CO2 28.9 21 - 32 MMOL/L 04/26/2024 8:50 PM [facility] CALCIUM S/P/B 10.0 8.5 - 10.1 MG/DL 04/26/2024 8:50 PM [facility] BILIRUBIN TOTAL S/P/B 0.3 0.2 - 1.2 MG/DL 04/26/2024 8:50 PM [facility] Comment: THIS ASSAY IS NOT RECOMMENDED FOR PATIENTS UNDERGOING TREATMENT WITH ELTROMBOPAG DUE TO THE POTENTIAL FOR FALSELY ELEVATED RESULTS. TOTAL PROTEIN S/P/B 7.7 6.4 - 8.2 G/DL 04/26/2024 8:50 PM [facility] ALBUMIN S/P/B 3.6 3.4 - 5.0 G/DL 04/26/2024 8:50 PM [facility] AST 14(L) 15 - 37 U/L 04/26/2024 8:50 PM [facility] ALT 19 14 - 55 U/L 04/26/2024 8:50 PM [facility] ALKALINE PHOSPHATASE S/P/B 79 50 - 136 U/L 04/26/2024 8:50 PM [facility] ANION GAP 4.1 2 - 10 MMOL/L 04/26/2024 8:50 PM [facility] BUN CREATININE RATIO 13.9 6 - 26 04/26/2024 8:50 PM [facility] A/G RATIO 0.9(L) 1.0 - 2.0 RATIO 04/26/2024 8:[address] [facility] GFR ESTIMATE 74(L) >90 ML/MIN/1.7 3 M2 04/26/2024 8:[address] [facility] Comment: NOTE: eGFR is not calculated for patients <18 years of age or gender unknown. This is an estimated GFR calculation using the new CKD EPI creatinine equation without race and so does not require a correction factor for race. This estimated GFR should not be used for calculating drug doses. 04/26/2024 7:41 PM ENDOSCOPY RN us Apryl MACIAS [facility]OR[facility] Final Result [facility] [address] [place] [address], [place] [phone] * Qualitative HCG (04/26/2024 7:41 PM ENDOSCOPY RN) PREG SCREEN-SERUM NEGATIVE 04/26/2024 8:[address] [facility] 04/26/2024 7:41 PM ENDOSCOPY RN Apryl [facility]IAS [facility] Final Result [facility] [address] [place] [address], [place] [phone] * (ABNORMAL) CBC W/DIFF AUTOMATED (04/26/2024 7:41 PM ENDOSCOPY RN) WBC 9.67 4.5 - 11.0 x10'3/uL 04/26/2024 7:[address] [facility] RBC 3.53(L) 4.20 - 5.40 x10'6/uL 04/26/2024 7:[address] [facility] HGB 8.9(L) 12.0 - 16.0 G/DL 04/26/2024 7:54 PM [facility] HCT 28.8(L) 38.0 - 48.0 % 04/26/2024 7:54 PM [facility] MCV 81.6 81.0 - 99.0 FL 04/26/2024 7:54 PM [facility] MCH 25.2(L) 27.0 - 31.0 PG 04/26/2024 7:54 PM [facility] MCHC 30.9(L) 32.0 - 36.0 G/DL 04/26/2024 7:54 PM [facility] RDW 14.6(H) 11.5 - 14.5 % 04/26/2024 7:54 PM [facility] PLT 399 130 - 400 x10'3/uL 04/26/2024 7:54 PM [facility] MPV 9.2(L) 9.3 - 12.2 FL 04/26/2024 7:54 PM [facility] DIFFERENTIAL TYPE AUTOMATED DIFFERENTIAL 04/26/2024 7:54 PM [facility] NEUTROPHILS % 64.2 % 04/26/2024 7:54 PM [facility] LYMPHOCYTES % 25.3 % 04/26/2024 7:54 PM [facility] MONOCYTES % 8.8 % 04/26/2024 7:54 PM [facility] EOSINOPHILS 0.7 % 04/26/2024 7:54 PM [facility] BASOPHILS 0.6 % 04/26/2024 7:54 PM [facility] IMMATURE GRANS % 0.4 % 04/26/19 7:54 PM [facility] ABS. NEUTROPHILS 6.20 1.80 - 7.70 x10'3/uL 04/26/2024 7:[address] [facility] ABS. LYMPHOCYTES 2.45 1.00 - 4.80 x10'3/uL 04/26/2024 7:[address] [facility] ABS. MONOCYTES 0.85 0.24 - 0.86 x10'3/uL 04/26/2024 7:[address] [facility] ABS. EOSINOPHILS 0.07 0.04 - 0.36 x10'3/uL 04/26/2024 7:[address] [facility] ABS. BASOPHILS 0.06 0.01 - 0.08 x10'3/uL 04/26/2024 7:[address] [facility] ABS. IMMATURE GRANULOCYTES 0.04 0.00 - 0.49 x10'3/uL 04/26/2024 7:[address] [facility] 04/26/2024 7:41 PM ENDOSCOPY RN Apryl [facility]IAS [facility]OR[facility] Final Result [facility] [address] [place] [address], [place] [phone] * MAGNESIUM (04/26/2024 7:35 PM ENDOSCOPY RN) MAGNESIUM 2.0 1.8 - 2.4 MG/DL 04/26/2024 10:[address] [facility] 04/26/2024 7:35 PM ENDOSCOPY RN Krysten MACIAS [facility]ORAT[facility] Final Resu lt [facility] [address] [place] [address], [place] [phone] * MG SCREENING W WIN [place]HEL[place] DIGI (05/29/2020 8:00 AM ENDOSCOPY RN) Anatomical Region Laterality Modality Breast Bilateral Mammography 05/29/2020 8:28 AM ENDOSCOPY RN Impressions 05/29/2020 8:29 AM ENDOSCOPY RN =====IMPRESSION:===== No mammographic findings suggestive of malignancy. ASSESSMENT: ACR BI-RADS CATEGORY 2 - BENIGN FINDING(S) RECOMMENDATION: 1: Routine screening mammogram bilateral in 1 year COMMENTS: Narrative 05/29/2020 8:29 AM ENDOSCOPY RN EXAMINATION: Digital bilateral screening mammogram with 3-D tomosynthesis EXAM DATE/TIME: 05/29/2020 7:41 AM REASON FOR EXAM: SCREENING COMPARISON: 2018, 2016, 2015 TECHNIQUE: Digital screening mammography of both breasts was performed in addition to 3-D Tomosynthesis technique. This study was read with the assistance of a computer-aided detection system. TISSUE DENSITY: The breast tissue is heterogeneously dense. FINDINGS: No suspicious masses, malignant appearing calcifications, skin thickening or other abnormalities are present. No significant change from the prior exam. us Candace Forbes MD MAMMO Final Res ult from Last 3 Months or Most Recently Relevant to Health Maintenance Insurance [employer] OPEN ACCESS [facility] Care Teams Lab Technician Relationship Specialty Start Date End Date Travis Allen PA [address] [place] [id number] PCP - General 08/10/16
--- OUTSIDE RECORDS SUMMARY | 2024-06-21 16:54 | XMS_ITS | Clinical Summary ---
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
== END 2024-06-21 15:08 | disposition home or self-care (01) ==
LOC: ANHLAB 15:08
PROVIDERS: PCP Physician Assistant; Visit Provider Obstetrics & Gynecology
DX: Z86.2 Personal history of diseases of the blood and blood-forming organs and certain disorders involving the immune mechanism (principal)
CPT/HCPCS: 36415; 85027